=== PATIENT | female | born 1980 | race Caucasian/White ===

== ENCOUNTER 2018-09-17 19:34 | Emergency (ER) | payer OTHER, SELFPAY ==
[2018-09-17 20:37] LABS: #Eosinphils 0.1 thou/uL (0.0-0.7); #Lymphocytes 2.1 thou/uL (1.20-3.40); #Monocytes 0.6 thou/uL (0.11-0.59); #Neutrophils 3.6 thou/uL (1.40-6.50); %Basophils 0.8 % (0.0-1.0); %Eosinophils 1.9 % (0.0-10.0); %Lymphocytes 31.9 % (21.0-51.0); %Monocytes 9.6 % (0.0-10.0); %Neutrophils 55.9 % (42.0-75.0); Hemoglobin 15.2 g/dL (12.0-16.0); Mean Corpuscular HGB CONC 34.9 g/dL (32.0-36.0); Mean Corpuscular Hemoglobin 32.9 pg (27.0-31.0); Mean Corpuscular Volume 94.1 fL (78.0-98.0); Platelet Count 267 thou/uL (130-400); RBC Distribution Width 11.7 % (11.5-14.5); Red Blood Cell (RBC) Count 4.63 mill/uL (4.20-5.40); White Blood Cell (WBC) Count 6.5 thou/uL (4.8-10.8)
[2018-09-17 20:39] LABS: Bilirubin Negative (Negative); Blood, Urine Trace (Negative); Clarity CLOUDY (Clear); Glucose, Urine (Dipstick) Negative (Negative); Leukocyte Large (Negative); Nitrite Negative (Negative); Protein, Urine (Dipstick) Negative (Neg-Trace); Urobilinogen 0.2 mg/dL (0.2-1.0); pH, Urine 6.5 (5.0-9.0)
[2018-09-17 20:41] LABS: Bacteria/HPF Rare-Few HPF (None Seen); Hyaline Casts/LPF 7-10 HYALINE CAST LPF (0-3 Hyaline); RBC/HPF 0-3 HPF (0-3); Squamous Epithelial 0-3 HPF (0-3)
--- NOTE | 2018-09-17 20:53 | CT ---
NONCONTRAST ABDOMEN AND PELVIS CT RENAL CALCULUS PROTOCOL 09/17/18 COMPARISON: 12/25/10. INDICATION: Abdominal pain. History of urolithiasis. FINDINGS: A punctate calculus measuring 2x3 mm at the junction of the left renal pelvis and proximal left urete r does result in moderate left hydronephrosis. There is additional left nephrolithiasis at the mid an d lower portion of the left kidney Punctate nonobstructive right nephrolithiasis is present. Urinary bladder is decompressed. Solid abdominal organs, bowel, lymph nodes, vasculature are limited in asses sment on the basis of noncontrast technique. There is no free air. No consolidation or effusion at th e imaged lower chest. No acute osseous pathology. IMPRESSION: Moderately obstructing 2x3 mm calculus at the junction of the left UPJ and proximal left ureter. POS: [facility]
[2018-09-17 21:06] LABS: BHCG - Serum Negative (NEGATIVE); Pregs Control Background? CLEAR/WHITE (CLR/WHITE); Pregs Control Bar Appear? YES (CONTROL BAR)
[2018-09-17] MEDS ORDERED: Fentanyl 100 MCG/2 ML VIAL ONE (21:06)
[2018-09-17] MEDS ORDERED: Ketorolac Tromethamine 30 MG/ML VIAL ONE (21:07)
[2018-09-17] MEDS ORDERED: Ondansetron PF 4 MG/2 ML Vial ONE (21:07)
[2018-09-17 21:15] LABS: ALT (SGPT) 9 U/L (8-55); AST (SGOT) 9 U/L (5-34); Albumin 4.5 g/dL (3.5-5.0); Alkaline Phosphatase 70 U/L (40-150); Anion Gap 15 mmol/L (10-20); BUN (Urea Nitrogen) 14 mg/dL (7.0-18.7); Bilirubin, Total 0.2 mg/dL (0.2-1.2); Calc. Creatinine Clearance 0 mL/min (70-130); Calcium 9.4 mg/dL (7.8-10.44); Carbon Dioxide 21 mmol/L (22-29); Chloride 107 mmol/L (98-107); Estimated GFR-MDRD 54; Globulin 2.8 g/dL (2.4-3.5); Glucose 101 mg/dL (70-105); Lipase 32 U/L (8-78); Potassium 3.6 mmol/L (3.5-5.1); Protein, Total 7.3 g/dL (6.0-8.3); Sodium 139 mmol/L (136-145)
[2018-09-17] MEDS ORDERED: Morphine 4 MG/ML VIAL ONE (22:23)
== END 2018-09-17 23:20 | disposition home or self-care (01) ==
LOC: ERS 19:34
DX: N13.2 Hydronephrosis with renal and ureteral calculous obstruction (principal); F41.9 Anxiety disorder, unspecified; F31.9 Bipolar disorder, unspecified; Z79.899 Other long term (current) drug therapy; Z87.442 Personal history of urinary calculi
CPT/HCPCS: 36415; 74176; 80053; 81003; 81015; 83690; 84703; 85025; 87086; 96361; 96374; 96375; J1885; J2270; J2405; J3010

== ENCOUNTER 2018-09-27 11:14 | Outpatient (CLI) | payer OTHER ==
[2018-09-27 12:51] LABS: Mean Corpuscular HGB CONC 33.8 g/dL (32.0-36.0); Mean Corpuscular Hemoglobin 31.9 pg (27.0-31.0); Mean Corpuscular Volume 94.3 fL (78.0-98.0); Mean Platelet Volume 6.7 fL (7.4-10.4); Platelet Count 330 thou/uL (130-400); RBC Distribution Width 11.7 % (11.5-14.5); Red Blood Cell (RBC) Count 4.39 mill/uL (4.20-5.40); White Blood Cell (WBC) Count 6.1 thou/uL (4.8-10.8)
[2018-09-27 12:57] LABS: Bilirubin Negative (Negative); Blood, Urine Small (Negative); Clarity CLEAR (Clear); Glucose, Urine (Dipstick) Negative (Negative); Leukocyte Negative (Negative); Nitrite Negative (Negative); Protein, Urine (Dipstick) Negative (Neg-Trace); Specific Gravity, Urine 1.005 (1.002-1.036); Urobilinogen 0.2 mg/dL (0.2-1.0)
[2018-09-27 13:00] LABS: PTT 31.8 SEC (22.9-36.1); Prothrombin Time 13.3 SEC (12.0-14.7)
[2018-09-27 13:01] LABS: Bacteria/HPF None Seen HPF (None Seen); Hyaline Casts/LPF 0-3 HYALINE CAST LPF (0-3 Hyaline); RBC/HPF 0-3 HPF (0-3); Squamous Epithelial 0-3 HPF (0-3); WBC/HPF 0-3 HPF (0-3)
[2018-09-27 13:03] LABS: BHCG - Serum Negative (NEGATIVE); Pregs Control Background? CLEAR/WHITE (CLR/WHITE); Pregs Control Bar Appear? YES (CONTROL BAR)
[2018-09-27 13:12] LABS: Anion Gap 14 mmol/L (10-20); BUN (Urea Nitrogen) 7 mg/dL (7.0-18.7); Calc. Creatinine Clearance 0 mL/min (70-130); Calcium 9.7 mg/dL (7.8-10.44); Carbon Dioxide 23 mmol/L (22-29); Chloride 107 mmol/L (98-107); Estimated GFR-MDRD 73; Glucose 94 mg/dL (70-105); Potassium 4.5 mmol/L (3.5-5.1); Sodium 139 mmol/L (136-145)
== END 2018-09-27 11:15 | disposition home or self-care (01) ==
LOC: LABBT 11:14
PROVIDERS: ATTEND Urology
DX: Z01.818 Encounter for other preprocedural examination (principal)
CPT/HCPCS: 80048; 81001; 84703; 85027; 85610; 85730; 87086; 93005; 93010

== ENCOUNTER 2018-09-29 10:10 | Day surgery (SDC) | payer OTHER ==
[2018-09-27 11:30] VITALS: BMI 31.4
[2018-09-29] MEDS ORDERED: Midazolam HCl 2 mg/2 ml Vial ONE (12:31)
[2018-09-29] MEDS ORDERED: Iothalamate Meglumine 60% 50 ML VIAL FS ONE (13:00)
[2018-09-29] MEDS ORDERED: Levofloxacin 500 mg/D5W 100 ml Premix Bag ONE (13:10)
[2018-09-29] MEDS ORDERED: Fentanyl 100 MCG/2 ML VIAL ONE ×3 (13:15→15:21)
[2018-09-29] MEDS ORDERED: KETAMINE 100 MG/ML (5ML VIAL) ONE (13:15)
[2018-09-29] MEDS ORDERED: Dexamethasone 20 MG/5 ML VIAL ONE (13:30)
[2018-09-29] MEDS ORDERED: Ondansetron PF 4 MG/2 ML Vial ONE (13:30)
[2018-09-29] MEDS ORDERED: Lidocaine 1% PF 5 ML VIAL ONE (13:30)
[2018-09-29] MEDS ORDERED: PROPOFOL 200 MG/20 ML VIAL ONE (13:30)
[2018-09-29] MEDS ORDERED: Rocuronium Bromide 10 MG/ML (10ML VIAL) ONE (13:30)
[2018-09-29] MEDS ORDERED: Glycopyrrolate 0.2 MG/ML 5 ML SYRINGE ONE (13:30)
[2018-09-29] MEDS ORDERED: Ketorolac Tromethamine 30 MG/ML VIAL ONE (13:30)
[2018-09-29] MEDS ORDERED: B & O ONE (14:30)
--- NOTE | 2018-09-29 20:59 | OP ---
DATE OF PROCEDURE: 09/29/2018 SERVICE: Urology. PREOPERATIVE DIAGNOSIS: Left proximal ureteral stone. POSTOPERATIVE DIAGNOSIS: Left renal stone. PROCEDURES PERFORMED: Performed left ureteroscopy, laser lithotripsy, basket extraction of stone, and placement of a 6 x 26 double-J stent. INDICATION FOR PROCEDURE: Ms. Daniels is a 38-year-old white female who presented to urology office with a left ureteral stone. She has significant left flank pain and discomfort and CT demonstrated a proximal left ureteral stone with a left lower pole renal stone. The stone had been unchanged in its position since 07/13. I had recommended that she give consideration to ureteroscopy and laser lithotripsy with basket extraction of stone and she is in agreement. DESCRIPTION OF PROCEDURE: After identification of armband and verification of consent, the patient was brought back to the operating room, where she underwent general anesthesia with endotracheal intubation. She was then placed in dorsal lithotomy position and prepped and draped in usual sterile fashion. After appropriate time-out, a lubricated 22-Israeli rigid cystoscope was introduced per urethra into the bladder. Attention was turned to the left ureteral orifice, which was cannulated with a 0.035 Sensor wire. The cystoscope was then removed leaving the Sensor wire in place. A dual-lumen catheter was advanced over the Sensor wire up to the level of the proximal ureter. The second lumen was cannulated with the Amplatz Super Stiff wire into the level of the kidney. The dual-lumen catheter was then removed and the Sensor wire affixed to the drapes as a safety wire. An 11/13 x 36 cm ureteral access sheath was advanced to the proximal ureter. The inner cannula and the Super Stiff wire were then removed leaving the outer sheath and Sensor wire in place as a safety wire. A flexible digital ureteroscope was then passed up to the proximal ureter and no stone was seen at the UPJ. I felt that it probably had gotten blown back into the kidney and a full pyeloscopy was performed. There were no stones other than the one stone found in the lower pole, which had previously been noted on CT scan. This was a little unusual as there were two stones noted on the CT scan, but only one stone was encountered within the kidney during the surgery. There was some possibility that she may have passed the UPJ stone or that the stone was actually outside the ureter and it was noted that she did have a mild UPJ obstruction present, which was able to be navigated past using the ureteroscope. Satisfied with that there was no ureteral stone at this point, a 200 micron laser fiber was used to fragment the lower pole stone into 2 to 3 pieces, which were then grasped with difficulty with a 1.9-Israeli ZeroTip Nitinol basket. There was difficulty that the stone was sitting in an anterior calyx, which was a little difficult to access, but after some manipulation, we were able to get all the stones out. Final pyeloscopy in every calyx did not demonstrate any additional stones and I did not see anything else that looked like a kidney stone. As such, I felt that there were no additional stones and the ureteroscope was then withdrawn and pull-back ureteroscopy employed to evaluate the entire ureter from the renal pelvis down to the distal ureter and no additional stones were seen. The ureteroscope was then withdrawn along with the ureteral access sheath. The cystoscope was then advanced back into the bladder over the safety wire and a 6 x 26 double-J stent advanced over the Sensor wire up into the renal pelvis. The wire was then removed leaving a good curl in the kidney and a good curl in the bladder. The bladder was then left full and the cystoscope removed. A 16-Israeli Gonzalez catheter was placed in the patient's bladder with 10 mL of sterile water in the balloon per the patient's wishes as she does have reflux and pain with her stent. B and O suppository was placed in the rectum. The catheter was affixed to a drainage bag. The patient was then awakened and taken to PACU for recovery in stable condition. COMPLICATIONS: None. ESTIMATED BLOOD LOSS: Minimal. RETAINED TUBES AND DRAINS: A 16-Israeli Gonzalez catheter and a 6 x 26 double-J stent on the left. SPECIMEN: Stone for stone analysis. DISPOSITION: The patient will be discharged home and follow up with me in 1 week for cysto stent removal. Subsequently, if she redevelops recurrent hydronephrosis, we may consider another CT to see if there are no stones and MAG 3 scan to evaluate for possible UPJ obstruction, which did appear that she may have some element on ureteroscopy. If she is asymptomatic, then we will just leave things alone. Job ID: [id number]
[2018-10-04 10:15] LABS: CA Oxalate Dihydrate 20 % (.); CA Oxalate Monohydrate 50 % (.); CA Phosphate 30 % (.); Color Tan (.)
== END 2018-09-29 11:55 | disposition home or self-care (01) ==
LOC: SDC 10:10
PROVIDERS: ATTEND Urology
PROC: 0TF48ZZ Fragmentation in Left Kidney Pelvis, Via Natural or Artificial Opening Endoscopic (ICD-10-PCS; principal; 2018-09-29)
PROC: 0T778DZ Dilation of Left Ureter with Intraluminal Device, Via Natural or Artificial Opening Endoscopic (ICD-10-PCS; principal; 2018-09-29)
DX: N20.0 Calculus of kidney (principal); Z87.891 Personal history of nicotine dependence; Z88.8 Allergy status to other drugs, medicaments and biological substances
CPT/HCPCS: 76000; 82365; 88300; 96374; C1769; J0131; J1100; J1885; J1956; J2001; J2250; J2405; J2704; J3010; Q9961

== ENCOUNTER 2018-11-29 12:18 | Outpatient (CLI) | payer OTHER ==
--- NOTE | 2018-11-29 14:00 | ULT ---
BILATERAL RENAL ULTRASOUND: HISTORY: Nephrolithiasis. FINDINGS: Correlation is made with the CT scan of 09/17/2018. The right kidney measures 11.3 cm on length and the left kidney measures 12 cm in length. There is m ild prominence of the renal pelves on either side without hydroureteral nephrosis. No focal mass is seen. Cortical echogenicity and thickness is normal. The urinary bladder has a volume of 76 cc on t he prevoid images with 7 cc of postvoid residual. Echogenic foci in the left kidney is likely calcul i. IMPRESSION: 1. Left renal calculi. 2. No evidence of high-grade obstruction. POS: [facility]
== END 2018-11-29 12:19 | disposition home or self-care (01) ==
LOC: BICULT 12:18
PROVIDERS: ATTEND Urology
DX: N20.0 Calculus of kidney (principal)
CPT/HCPCS: 76770